=== PATIENT | female | born 1975 | race Two or more races ===

== ENCOUNTER 2017-03-22 12:20 | Emergency (ER) | payer OTHER ==
[~2017-03-22] VITALS: Ht 162.6 cm; Wt 68.0 kg
--- NOTE | 2017-03-22 12:47 | Emergency Room Report ---
History of Present Illness General Chief Complaint: General Complaint Source: Patient Present Illness HPI 31-year-old female presents to the emergency department complaining of 10 out of 10 in severity painful ulcers in the mouth x4 days. Patient denies rashes or lesions elsewhere on the body. Patient denies new medications. Patient reports intermittent chills. Denies recent illness or URI. Patient denies fevers, abdominal pain, swelling of the lips or tongue. Patient denies history oral lesions. Denies CP, Palpitations, LOC, AMS, dizziness, Changes in Vision, Sensation, paresthesias, or a sudden severe headache. Allergies: Coded Allergies: No Known Allergies (Unverified , 03/22/17) Patient History Past Medical History: see triage record Past Surgical History: none Pertinent Family History: none Now: No Immunizations: UTD Reviewed Nursing Documentation: PMH: Agreed, PSxH: Agreed Nursing Documentation-PMH Past Medical History: No Stated History Review of Systems All Other Systems: negative except mentioned in HPI Physical Exam Vital Signs Date Time Temp Pulse Resp B/P Pulse Ox O2 Delivery O2 Flow Rate FiO2 03/22/17 12:27 97.5 76 20 132/88 99 Room Air Sp02 EP Interpretation: reviewed, normal General Appearance: no apparent distress, alert, GCS 15, non-toxic Head: normocephalic, atraumatic Eyes: bilateral eye PERRL, bilateral eye normal inspection ENT: hearing grossly normal, normal pharynx, no angioedema, normal voice, other - 5 small discrete oral ulcers on the buccal mucousa bilaterally, with zheng floors and discrete borders. no lesions on the pharynx, no tonsillar exudates, external lesions or buccal swelling. Neck: full range of motion Respiratory: lungs clear, normal breath sounds, speaking full sentences Cardiovascular #1: regular rate, rhythm, no edema Musculoskeletal: back normal, gait/station normal, normal range of motion, non- tender Neurologic: alert, oriented x3, responsive, motor strength/tone normal, sensory intact, speech normal Psychiatric: judgement/insight normal, memory normal, mood/affect normal Skin: normal color, no rash - oral lesions see ENT section, warm/dry, well hydrated Lymphatic: no adenopathy Medical Decision Making PA Attestation Dr. rodriguez is my supervising Physician whom patient management has been discussed with. Diagnostic Impression: Primary Impression: Aphthous stomatitis ER Course 31-year-old female presents to the emergency department complaining of 10 out of 10 in severity painful ulcers in the mouth x4 days. Patient denies rashes or lesions elsewhere on the body. Patient denies new medications. Patient reports intermittent chills. Denies recent illness or URI. Patient denies fevers, abdominal pain, swelling of the lips or tongue. Patient denies history oral lesions. Denies CP, Palpitations, LOC, AMS, dizziness, Changes in Vision, Sensation, paresthesias, or a sudden severe headache. Ddx considered but are not limited to: stomatitis, up from his ulcers, oral thrush, HFM, koplik spots, HSV, dental abscess, [employer]GER, tonsiliths. Vital signs: are WNL, pt. is afebrile H&PE are most consistent with aphthous stomatitis. ORDERS: none required at this time, the diagnosis is clinical ED INTERVENTIONS: None required at this time. DISCHARGE: At this time pt. is stable for d/c to home. Will provide printed patient care instructions, and any necessary prescriptions. Care plan and follow up instructions have been discussed with the patient prior to discharge. Last Vital Signs Date Time Temp Pulse Resp B/P Pulse Ox O2 Delivery O2 Flow Rate FiO2 03/22/17 12:27 97.5 76 20 132/88 99 Room Air Disposition: HOME, SELF-CARE Condition: Stable Scripts Lidocaine HCl 2% Viscous (Lidocaine HCl 2% Viscous) 100 Ml Solution 5 ML ORAL QID, #118 ML Prov: Mahi Tao.Rosa M 03/22/17 Ibuprofen* (MOTRIN*) 400 Mg Tablet 400 MG ORAL THREE TIMES A DAY, #30 TAB 0 Refills Prov: Mahi Tao P.A. 03/22/17 Acyclovir* (ZOVIRAX*) 800 Mg Tablet 800 MG ORAL FIVE TIMES A DAY for 7 Days, #35 TAB Prov: Mahi Tao P.A. 03/22/17 Patient Instructions: Stomatitis, [id number] Additional Instructions: Take medications as directed. Follow up with a Primary Care Provider in 3-5 days, even if your symptoms have resolved. --Please review list of primary care clinics, if you do not already have a primary care provider Return sooner to ED if new symptoms occur, or current symptoms become worse. - Please note that this Emergency Department Report was dictated using [employer] support administrator technology software, occasionally this can lead to erroneous entry secondary to interpretation by the dictation equipment. Mhai Tao Mar 22, 2017 12:47
[2017-03-22] MEDS ORDERED: IBUPROFEN400 MG ORAL (12:49)
[2017-03-22] MEDS ORDERED: ACYCLOVIR800 MG ORAL (12:49)
[2017-03-22] MEDS ORDERED: LIDOCAINE VISC100 ML ORAL (12:49)
[2017-03-22 12:53] VITALS: BP 132/88
[2017-03-22 13:00] VITALS: BP 132/88
== END 2017-03-22 13:00 | disposition home or self-care (01) ==
LOC: EMR 12:55
DX: K12.0 Recurrent oral aphthae (principal)
CPT/HCPCS: 99284